=== PATIENT | female | born 1965 | race Caucasian/White ===

== ENCOUNTER 2018-02-17 21:36 | Emergency (ER) | payer MEDICAID ==
[~2018-02-17] VITALS: Ht 160 cm; Wt 90.0 kg
[2018-02-17 21:51] VITALS: BP 170/89
[2018-02-17] MEDS ORDERED: AZIT-57 PO (22:02)
== END 2018-02-17 22:20 | disposition home or self-care (01) ==
LOC: ER 21:36
DX: J40 Bronchitis, not specified as acute or chronic (principal); J45.909 Unspecified asthma, uncomplicated; Z88.0 Allergy status to penicillin; Z88.5 Allergy status to narcotic agent; Z88.8 Allergy status to other drugs, medicaments and biological substances
CPT/HCPCS: 99281

== ENCOUNTER 2018-10-25 17:45 | Emergency (ER) | payer MEDICAID ==
[~2018-10-25] VITALS: Ht 157.5 cm; Wt 99.6 kg
[~2018-10-25 17:45] MED LIST: ALBU18HF2 INH
[2018-10-25 18:27] VITALS: BP 171/84
[2018-10-25] MEDS ORDERED: LEVO500T2 PO (20:05)
== END 2018-10-25 20:13 | disposition home or self-care (01) ==
LOC: ER 17:46
DX: H66.92 Otitis media, unspecified, left ear (principal); J32.9 Chronic sinusitis, unspecified; J45.909 Unspecified asthma, uncomplicated; Z88.0 Allergy status to penicillin; Z88.5 Allergy status to narcotic agent; Z88.6 Allergy status to analgesic agent; Z88.8 Allergy status to other drugs, medicaments and biological substances; Z79.899 Other long term (current) drug therapy
CPT/HCPCS: 99283

== ENCOUNTER 2019-06-25 18:40 | Emergency (ER) | payer MEDICAID ==
[~2019-06-25] VITALS: Ht 157.5 cm; Wt 100.0 kg
[2019-06-25 18:41] VITALS: BP 183/94
[2019-06-25] MEDS ORDERED: benzonatate 100mg capsule PO ONE (20:00)
[2019-06-25] MEDS ORDERED: hydrOXYzine 10 MG tablet PO ONE (20:00)
[2019-06-25] MEDS ORDERED: HYDR-3686 PO (20:10)
[2019-06-25] MEDS ORDERED: BENZ-16 PO (20:10)
== END 2019-06-25 20:18 | disposition home or self-care (01) ==
LOC: ER 18:40
DX: J30.2 Other seasonal allergic rhinitis (principal); J06.9 Acute upper respiratory infection, unspecified; J45.909 Unspecified asthma, uncomplicated; H57.89 Other specified disorders of eye and adnexa; Z88.0 Allergy status to penicillin; Z88.5 Allergy status to narcotic agent; Z88.6 Allergy status to analgesic agent; Z88.8 Allergy status to other drugs, medicaments and biological substances; Z79.899 Other long term (current) drug therapy
CPT/HCPCS: 99283

== ENCOUNTER 2019-07-19 22:10 | Emergency (ER) | payer MEDICAID ==
[~2019-07-19] VITALS: Ht 157.5 cm; Wt 97.9 kg
[~2019-07-19 22:10] MED LIST changes: +BENZ-16 PO
[2019-07-19 22:20] VITALS: BP 160/79
[2019-07-19] MEDS ORDERED: LIDO700A32 TD (23:46)
--- NOTE | 2019-07-19 23:55 | NUR ---
pt verbalized use of incentive spirometer and demonstrated how to use it
== END 2019-07-19 23:55 | disposition home or self-care (01) ==
LOC: ER 22:11
DX: S20.212A Contusion of left front wall of thorax, initial encounter (principal); J45.909 Unspecified asthma, uncomplicated; Z88.0 Allergy status to penicillin; Z88.5 Allergy status to narcotic agent; Z88.6 Allergy status to analgesic agent; Z79.899 Other long term (current) drug therapy; W18.39XA Other fall on same level, initial encounter; Y93.89 Activity, other specified; Y92.89 Other specified places as the place of occurrence of the external cause; Y99.8 Other external cause status
CPT/HCPCS: 71045; 99283

== ENCOUNTER 2019-09-26 16:03 | Emergency (ER) | payer MEDICAID ==
[~2019-09-26] VITALS: Ht 157.5 cm; Wt 97.1 kg
[~2019-09-26 16:03] MED LIST changes: -BENZ-16 PO; +LIDO700A32 TD
[2019-09-26 16:08] VITALS: BP 172/93
[2019-09-26 16:38] LABS: BASOPHILS # (AUTO) 0.1 X10'3 (0-0.2); BASOPHILS % (AUTO) 1.2 % (0-1); EOSINOPHILS # (AUTO) 0.1 X10'3 (0-0.9); EOSINOPHILS % (AUTO) 1.2 % (0-6); HEMATOCRIT 52.2 % (35.0-45.0); HEMOGLOBIN 17.4 g/dl (12.0-16.0); LYMPHOCYTES # (AUTO) 1.5 X10'3 (1.1-4.8); LYMPHOCYTES % (AUTO) 21.4 % (21-51); MEAN CORPUSCULAR HEMOGLOBIN 30.5 PG (27.0-31.0); MEAN CORPUSCULAR HGB CONC 33.4 g/dL (33.0-36.5); MEAN CORPUSCULAR VOLUME 91.5 FL (78-98); MEAN PLATELET VOLUME 10.3 FL (7.4-10.4); MONOCYTES # (AUTO) 0.6 X10'3 (0-0.9); MONOCYTES % (AUTO) 7.9 % (2-12); NEUTROPHILS # (AUTO) 4.9 X10'3 (1.8-7.7); NEUTROPHILS % (AUTO) 68.3 % (42-75); PLATELET COUNT 223 X10'3 (140-440); RED CELL DISTRIBUTION WIDTH 13.4 % (11.5-14.5); WHITE BLOOD COUNT 7.2 X10'3 (4.5-11.0)
[2019-09-26 16:53] LABS: CLARITY,URINE SLIGHTLY CLOUDY (Clear); COLOR,URINE YELLOW (Yellow); GLUCOSE, URINE 250 mg/dl (Neg); KETONES,URINE NEGATIVE (Neg); LEUKOCYTE ESTERASE ,URINE TRACE (Neg); NITRITES, URINE NEGATIVE (Neg); OCCULT BLOOD,URINE NEGATIVE (Neg); PH,URINE 5.5 (4.8-8.0); PROTEIN,URINE NEGATIVE (Neg); UROBILINOGEN,URINE 0.2 E.U/dL (0.2-1.0)
[2019-09-26 16:54] LABS: UA COLLECTION TYPE CLN CATCH MIDSTREAM
[2019-09-26 16:59] LABS: ALANINE AMINOTRANSFERASE 101 U/L (12-78); ALBUMIN 3.8 G/DL (3.4-5.0); ALKALINE PHOSPHATASE 123 IU/L (46-116); ANION GAP 7 (8-16); ASPARTATE AMINO TRANSFERASE 51 U/L (10-37); BILIRUBIN,TOTAL 1.7 MG/DL (0.1-1.0); BLOOD UREA NITROGEN 13 MG/DL (7-18); BUN/CREATININE RATIO 14.1 (6.6-38.0); CALCIUM 9.6 MG/DL (8.5-10.1); CHLORIDE 100 MMOL/L (99-107); CREATININE 0.92 MG/DL (0.40-0.90); GLUCOSE 219 MG/DL (70-104); POTASSIUM 3.9 MMOL/L (3.5-5.1); SODIUM 138 MMOL/L (135-145); TOTAL CARBON DIOXIDE 30.8 MMOL/L (24-32); TOTAL PROTEIN 7.6 G/DL (6.4-8.2); eGFR 64 ML/MIN
[2019-09-26 17:03] LABS: BACTERIA,URINE 3+ /HPF (Neg); RBC,URINE NONE SEEN /HPF (0-2); SQUAMOUS EPITHELIAL CELL,UR MANY /LPF (FEW)
--- NOTE | 2019-09-26 17:18 | NUR ---
has had a cough for the past few days and now it is starting to burn when she voids
[2019-09-26] MEDS ORDERED: AZIT-63 PO (17:39)
[2019-09-26] MEDS ORDERED: NITR100C6 PO (17:39)
== END 2019-09-26 17:54 | disposition home or self-care (01) ==
LOC: ER 16:03
DX: N39.0 Urinary tract infection, site not specified (principal); J06.9 Acute upper respiratory infection, unspecified; J45.909 Unspecified asthma, uncomplicated; Z88.0 Allergy status to penicillin; Z88.5 Allergy status to narcotic agent; Z79.2 Long term (current) use of antibiotics; Z79.899 Other long term (current) drug therapy; Z88.6 Allergy status to analgesic agent
CPT/HCPCS: 36415; 71045; 80053; 81001; 85025; 99284

== ENCOUNTER 2019-12-07 19:44 | Emergency (ER) | payer MEDICAID ==
[~2019-12-07] VITALS: Ht 157.5 cm; Wt 96.4 kg
[~2019-12-07 19:44] MED LIST changes: +NITR100C6 PO
[2019-12-07 20:43] LABS: ALANINE AMINOTRANSFERASE 88 U/L (12-78); ALBUMIN 3.8 G/DL (3.4-5.0); ALBUMIN/GLOBULIN RATIO 1.1 (1.1-1.5); ALKALINE PHOSPHATASE 108 IU/L (46-116); ANION GAP 8 (8-16); ASPARTATE AMINO TRANSFERASE 37 U/L (10-37); BILIRUBIN,TOTAL 1.2 MG/DL (0.1-1.0); BLOOD UREA NITROGEN 17 MG/DL (7-18); BUN/CREATININE RATIO 17.7 (6.6-38.0); CHLORIDE 105 MMOL/L (99-107); CREATININE 0.96 MG/DL (0.40-0.90); GLUCOSE 127 MG/DL (70-104); POTASSIUM 3.5 MMOL/L (3.5-5.1); SODIUM 142 MMOL/L (135-145); TOTAL CARBON DIOXIDE 29.3 MMOL/L (24-32); TOTAL PROTEIN 7.4 G/DL (6.4-8.2); eGFR 61 ML/MIN
[2019-12-07 20:55] LABS: BASOPHILS # (AUTO) 0.1 X10'3 (0-0.2); EOSINOPHILS # (AUTO) 0.2 X10'3 (0-0.9); EOSINOPHILS % (AUTO) 2.2 % (0-6); HEMATOCRIT 50.8 % (35.0-45.0); HEMOGLOBIN 17.1 g/dl (12.0-16.0); LYMPHOCYTES # (AUTO) 2.2 X10'3 (1.1-4.8); LYMPHOCYTES % (AUTO) 25.9 % (21-51); MEAN CORPUSCULAR HEMOGLOBIN 29.8 PG (27.0-31.0); MEAN CORPUSCULAR HGB CONC 33.6 g/dL (33.0-36.5); MEAN CORPUSCULAR VOLUME 88.6 FL (78-98); MEAN PLATELET VOLUME 10.7 FL (7.4-10.4); MONOCYTES # (AUTO) 0.7 X10'3 (0-0.9); MONOCYTES % (AUTO) 8.4 % (2-12); NEUTROPHILS # (AUTO) 5.3 X10'3 (1.8-7.7); NEUTROPHILS % (AUTO) 62.5 % (42-75); PLATELET COUNT 229 X10'3 (140-440); RED BLOOD COUNT 5.73 X10'6 (4.20-5.60); RED CELL DISTRIBUTION WIDTH 13.3 % (11.5-14.5); WHITE BLOOD COUNT 8.5 X10'3 (4.5-11.0)
[2019-12-07] MEDS ORDERED: PRED20TA PO (21:13)
[2019-12-07] MEDS ORDERED: albuterol 2.5 MG/3 ML nebule NEB ONE (21:15)
[2019-12-07] MEDS ORDERED: predniSONE 20 mg tablet PO ONE (21:15)
[2019-12-07 21:34] VITALS: BP 151/87
== END 2019-12-07 21:39 | disposition home or self-care (01) ==
LOC: ER 19:45
DX: J45.901 Unspecified asthma with (acute) exacerbation (principal); Z88.0 Allergy status to penicillin; Z88.5 Allergy status to narcotic agent; Z88.6 Allergy status to analgesic agent; Z88.8 Allergy status to other drugs, medicaments and biological substances; Z79.899 Other long term (current) drug therapy
CPT/HCPCS: 71045; 80053; 84484; 85025; 93005; 94640; 99284; J7512; 94760

== ENCOUNTER 2020-06-18 18:52 | Emergency (ER) | payer MEDICAID ==
[~2020-06-18] VITALS: Ht 157.5 cm; Wt 95.5 kg
[2020-06-18 20:23] VITALS: BP 171/98
== END 2020-06-18 20:25 | disposition home or self-care (01) ==
LOC: ER 18:52
DX: H65.92 Unspecified nonsuppurative otitis media, left ear (principal); H92.03 Otalgia, bilateral; J45.909 Unspecified asthma, uncomplicated; Z88.0 Allergy status to penicillin; Z88.5 Allergy status to narcotic agent; Z88.6 Allergy status to analgesic agent; Z79.899 Other long term (current) drug therapy
CPT/HCPCS: 99281

== ENCOUNTER 2021-06-10 22:02 | Emergency (ER) | payer MEDICAID ==
[~2021-06-10] VITALS: Ht 157.5 cm; Wt 95.5 kg
[2021-06-10 22:44] VITALS: BP 160/96
[2021-06-10] MEDS ORDERED: CLIN150C8 PO (23:02)
== END 2021-06-10 23:34 | disposition home or self-care (01) ==
LOC: ER 22:03
DX: J32.9 Chronic sinusitis, unspecified (principal); J02.9 Acute pharyngitis, unspecified; R09.89 Other specified symptoms and signs involving the circulatory and respiratory systems; J45.909 Unspecified asthma, uncomplicated; Z88.0 Allergy status to penicillin; Z88.5 Allergy status to narcotic agent; Z88.6 Allergy status to analgesic agent; Z79.899 Other long term (current) drug therapy
CPT/HCPCS: 99283